=== PATIENT | female | born 1965 | race Caucasian/White ===

== ENCOUNTER → 2018-03-12 | Outpatient (CLI) | payer OTHER | LOC: FIMAGING 12:47 | PROVIDERS: ATTEND Internal Medicine | DX: Z12.31 Encounter for screening mammogram for malignant neoplasm of breast (principal) ==

== ENCOUNTER 2018-09-13 08:24 | Day surgery (SDC) | payer OTHER ==
[2018-09-13] MEDS ORDERED: LR 1,000 ML IV ONE (08:55)
[2018-09-13] MEDS ORDERED: LIDOCAINE 1% 2 ML INJ ID PRN (08:55)
--- NOTE | 2018-09-13 09:10 | PDANEPAE ---
ANE History of Present Illness GERD, here for EGD ANE Past Medical History - Cardiovascular History Hx Hypertension: Yes Hx Arrhythmias: Yes Hx Chest Pain: No Hx Coronary Artery / Peripheral Vascular Disease: No Hx CHF / Valvular Disease: No Hx Palpitations: No Cardiovascular History Comment: AFIB - Pulmonary History Hx COPD: No Hx Asthma/Reactive Airway Disease: No Hx Recent Upper Respiratory Infection: No Hx Oxygen in Use at Home: No Hx Sleep Apnea: Yes Sleep Apnea Screening Result - Last Documented: Positive - Neurologic History Hx Cerebrovascular Accident: No Hx Seizures: No Hx Dementia: No - Endocrine History Hx Diabetes: No - Renal History Hx Renal Disorders: No - Liver History Hx Hepatic Disorders: No - Neurological & Psychiatric Hx Hx Neurological and Psychiatric Disorders: No - Cancer History Hx Cancer: No - Congenital Disorder History Hx Congenital Disorders: No - GI History Hx Gastrointestinal Disorders: Yes Gastrointestinal History Comment: dysphagia,reflux. ULCER - Other Health History Other Health History: rosacea on cheeks. bruises easily - Chronic Pain History Chronic Pain: No - Surgical History Prior Surgeries: none ANE Review of Systems Review of Systems: - Exercise capacity METS (RN): 3 METS ANE Patient History - Allergies Allergies/Adverse Reactions: No Known Allergies Allergy (Verified 04/11/18 10:25) - Home Medications Home Medications: Annamaria Allergy 04/03/18 [Last Taken 05/06/18] Cholecalciferol (Vitamin D3) 04/03/18 [Last Taken 05/06/18] Cyanocobalamin (Vitamin B-12) 04/03/18 [Last Taken 05/06/18] Fish Oil 1000 mg (*) 04/03/18 [Last Taken 05/06/18] Hydrocortisone 0.5% cream (*) 04/03/18 [Last Taken 05/06/18] Metrogel 04/03/18 [Last Taken 05/06/18] Vitamin C 04/03/18 [Last Taken 05/06/18] Lisinopril 09/04/18 [Last Taken Unknown] Metoprolol Tartrate 09/04/18 [Last Taken Unknown] Pantoprazole Sodium [Protonix 40mg (*)] 09/04/18 [Last Taken Unknown] Sulantra 09/04/18 [Last Taken Unknown] - NPO status NPO Since - Liquids (Date): 09/12/18 NPO Since - Liquids (Time): 23:00 NPO Since - Solids (Date): 09/12/18 NPO Since - Solids (Time): 22:00 - Smoking Hx Smoking Status: Never smoked - Family Anes Hx Family Hx Anesthesia Complications: NONE ANE Labs/Vital Signs - Vital Signs Blood Pressure: 173/94 Heart Rate: 46 Respiratory Rate: 16 O2 Sat (%): 93 Height: 165.1 cm Weight: 140.614 kg ANE Physical Exam - Airway Neck exam: FROM Mallampati Score: Class 3 Mouth exam: normal dental/mouth exam - Pulmonary Pulmonary: no respiratory distress - Cardiovascular Cardiovascular: regular rate and rhythym - ASA Status ASA Status: III (large neck, obese) ANE Anesthesia Plan Anesthesia Plan: GA w LMA, GA with mask Total IV Anesthesia: Yes
[2018-09-13] MEDS ORDERED: fentaNYL 100 MCG/2 ML INJ ONE (09:43)
[2018-09-13] MEDS ORDERED: PROPOFOL 200 MG/20 ML VIAL ONE (09:43)
[2018-09-13] MEDS ORDERED: PROPOFOL/EMULSION 500 MG/50 ML BOTTLE IV ONE (09:43)
--- NOTE | 2018-09-13 10:00 | PDGENHP ---
History & Physical Chief Complaint: Heartburn. Dysphagia History of Present Illness: EGD for evaluation of GERD with esophagitis and dysphagia Pertinent Past, Social, Family History: GERD. Esophagitis-reflux. Obesity. Atrial fibrillation. Esophageal stenosis. SH: No tob No ETOH. FH: negative for esophageal malignancy Relevant Physical Exam: NAD. HEENT: NC/AT. OP clear. Neck supple. No JVD. CTA B/L. RRR without m/r/g. GI soft. NABS. NT/ND. No HSM. No ascites. Cardiorespiratory Assessment: EGD with MAC. ASA III
--- NOTE | 2018-09-13 10:29 | GIREPORT ---
[facility] - Endoscopy Department Patient Name: Kari Patel Procedure Date: 09/13/2018 9:57 AM Patient Type: Outpatient Attending MD/ ER Physician: Moise Ojeda MD Procedure: Upper GI endoscopy Indications: Dysphagia, Heartburn Providers: Moise Ojeda MD Medicines: Propofol per Anesthesia Complications: No immediate complications. Description of Procedure: After obtaining informed consent, the endoscope was passed under direct vision. Throughout the procedure, the patient's blood pressure, pulse, and oxygen saturations were monitored continuously. The Endoscope was intro duced through the mouth, and advanced to the second part of duodenum. The [facility] GI endoscopy was accomplished without difficulty. The patient tolerated th e procedure well. Findings: One benign-appearing, intrinsic stenosis was found at the gastroesophag eal junction. This stenosis was moderately severe and measured 1.1 cm (inne r diameter) x 1 cm (in length). The stenosis was traversed. A TTS dilator was passed through the scope. Dilation with a 15-16.5-18 mm balloon dilator was performed to 16.5 mm. A few small sessile polyps with no bleeding and no stigmata of recent bleeding were found in the gastric fundus. The polyp was removed with a cold biopsy forceps. Resection and retrieval were complete. The duodenal bulb, first portion of the duodenum and second portion of the duodenum were normal. Estimated Blood Loss: Estimated blood loss: none. Post Op Diagnosis: - Benign-appearing esophageal stenosis. Dilated. - A few gastric polyps. Resected and retrieved. - Normal duodenal bulb, first portion of the duodenum and second portio n of the duodenum. Recommendation: - Await pathology results. - Use Protonix (pantoprazole) 40 mg PO daily indefinitely. - Repeat esophageal dilation for recurrent dysphagia if needed. - Advance diet as tolerated today. - Return to GI office in 6 months. - Thank you for allowing me to be involved in the care of your patient. Attending Participation: I personally performed the entire procedure without the assistance of a fellow, resident or surg ical housekeeper/laundry assistant. Moise Ojeda MD Moise Ojeda MD 09/13/2018 10:28:47 AM This report has been signed electronicallyDavid MD Rusty Number of Addenda: 0 Note Initiated On: 09/13/2018 9:57 AM [email or web address]
[2018-09-13] MEDS ORDERED: fentaNYL 100 MCG/2 ML INJ IVP PRN (10:36)
[2018-09-13] MEDS ORDERED: NALOXONE HCL 0.4 MG/ML INJ IVP PRN (10:36)
[2018-09-13] MEDS ORDERED: MEPERIDINE 25 MG/0.5 ML AMP IVP PRN (10:36)
[2018-09-13] MEDS ORDERED: HYDROCODONE/APAP 5/325 TAB PO PRN (10:36)
[2018-09-13] MEDS ORDERED: ONDANSETRON 4 MG/2 ML VIAL IVP PRN (10:36)
[2018-09-13] MEDS ORDERED: LR 500 ML IV PRN (10:36)
--- NOTE | 2018-09-13 10:38 | POSTANESTH ---
Post Anesthetic Evaluation Cardiovascular Status: Normal, Stable Respiratory Status: Normal, Stable Level of Consciousness/Mental Status: Can Participate in Eval Pain Control: Adequate, Prn Tx Ordered Nausea/Vomiting Control: Adequate, Prn Tx Ordered Complications Possibly Related to Anesthesia: None Noted
[2018-09-13 13:14] VITALS: BP 129/67
== END 2018-09-13 12:00 | disposition home or self-care (01) ==
LOC: FSGY 08:24
PROVIDERS: ATTEND Internal Medicine Gastroenterology
PROC: 0DB68ZX Excision of Stomach, Via Natural or Artificial Opening Endoscopic, Diagnostic (ICD-10-PCS; principal; 2018-09-13 09:45)
PROC: 0D748ZZ Dilation of Esophagogastric Junction, Via Natural or Artificial Opening Endoscopic (ICD-10-PCS; principal; 2018-09-13 09:45)
DX: K31.7 Polyp of stomach and duodenum (principal); K29.50 Unspecified chronic gastritis without bleeding; R12 Heartburn
CPT/HCPCS: 43239; 43249; C1726; J2704; J3010